=== PATIENT | male | born 1985 | race Caucasian/White ===

== ENCOUNTER 2019-04-01 22:33 | Emergency (ER) | payer SELFPAY ==
[~2019-04-01] VITALS: Ht 185.4 cm; Wt 72.7 kg
[2019-04-01 22:35] VITALS: BP 136/79
[2019-04-01] MEDS ORDERED: LIDOcaine 1% W/epiNEPHrine 1:200,000 10ml vial IJ ONE (23:45)
[2019-04-02] MEDS ORDERED: ibuprofen tablet 400 MG TABLET PO ONE (00:15)
== END 2019-04-02 00:45 | disposition home or self-care (01) ==
LOC: ER 22:34
DX: S01.111A Laceration without foreign body of right eyelid and periocular area, initial encounter (principal); Z88.0 Allergy status to penicillin; W01.198A Fall on same level from slipping, tripping and stumbling with subsequent striking against other object, initial encounter; Y93.89 Activity, other specified; Y92.89 Other specified places as the place of occurrence of the external cause; Y99.8 Other external cause status
CPT/HCPCS: 12013; 99284